=== PATIENT | male | born 1945 | race Caucasian/White ===

== ENCOUNTER → 2016-09-24 | Outpatient (CLI) | payer MEDICARE, OTHER ==
[~2016-09-24] MED LIST: BUDE10.2; CPR500T PO; HYDR1TAB8 OP; HYOS0.1217 PO; OXYC1TAB87 PO; PHEN200T27 PO
--- OUTSIDE RECORDS SUMMARY | 2016-09-24 10:08 | XMS REPORT | Continuity of Care Document ---
Author Author [facility] Organization [facility] Address Unknown Phone Unavailable Care Team Providers Care Bank Representative Name Role Phone DORIAN SAMANO MD PCP Insurance Providers Payer Name Policy Number Subscriber Name Relationship [employer] [id number] Raymon Cueva 18 Self / Same As Patient For Life [id number] Raymon Cueva 18 Self / Same As Patient Advance Directives Directive Response Recorded Date/Time Advance Directives No 09/20/16 3:42pm Health Care Power of Director Imaging No 09/20/16 3:42pm Organ Donor No 09/20/16 3:42pm Resuscitation Status Full Code 09/20/16 3:42pm Chief Complaint and Reason for Visit Chief Complaint Neurological Problems Reason for Visit transient loss of coordination lower extremities Problems No problem information available. Medications Current Home Medications Medication Dose Units Route Directions Days/Qty Instructions Start Date Ciprofloxacin 500 Mg 1 Tab Oral Twice A Day 6 TAKE ONE BY MOUTH TWICE DAILY. USE ALL OF THIS MEDICATION DIRECTED. 01/29/11 Oxycodone/Acetaminophen 1 Tab 1 Tab Oral Every 4HRS as needed 20 MAY TAKE ONE TAB BY MOUTH EVERY 4HRS NEEDED FOR PAIN 01/29/11 Budesonide/Formoterol Fumarate 10.2 Gm 30 09/20/16 Past Home Medications Medication Directions Ordered Status Ciprofloxacin 500 Mg Tablet, 1 Tab Oral Twice A Day 01/07/11 Discontinued Hydrocodone Bitartrate/Ibuprofen 1 Each Tablet, 1 - 2 Each Ophthalmic Q 4 - 6 Hrs Prn 01/07/11 Discontinued Phenazopyridine Hcl 200 Mg Tablet, 1 Each Oral Three Times A Day And Prn 12/08 Discontinued Hyoscyamine Sulfate (Levsin) 0.125 Mg/Tab Tab.rapdis, 1 - 2 Each Oral Q4hr Prn 01/10/11 Discontinued Social History Social History Problem Response Recorded Date/Time Alcohol Use Denies Use 09/20/2016 3:42pm Recreational Drug Use No 09/20/2016 3:42pm Recent Foreign Travel No 09/20/2016 3:42pm Recent Infectious Disease Exposure No 09/20/2016 3:42pm Sexually Transmitted Disease No 09/20/2016 3:42pm Smoking Status Current Everyday Smoker 09/20/2016 3:42pm Type Used Cigarettes 09/20/2016 3:42pm Recent Hopitalizations No 09/20/2016 3:42pm Sexually Transmitted Disease No 09/20/2016 3:42pm Hx Sexually Transmitted Disorders No 01/29/2011 7:00am Query Response Start Date Stop Date Smoking Status Current Everyday Smoker Hospital Discharge Instructions No hospital discharge instructions. Plan of Care Discharge Date 09/20/16 5:54pm Disposition 01 HOME, SELF-CARE Condition at Discharge Improved Instructions/Education Provided NO INSTRUCTIONS GIVEN Prescriptions See Medication Section Referrals DORIAN SAMANO MD - Primary Care Physician Additional Instructions/Education All discharge instructions reviewed with patient and/or family. Voiced understanding. Resume usual activities. If symptoms recur, see your provider for possible further in-depth neurologic studies Functional Status Query Response Date Recorded Patient Orientation Person Place Time Situation Normal For Age September 20, 2016 3:42pm Comprehension Ability Understands Concepts September 20, 2016 3:42pm Allergies, Adverse Reactions, Alerts No known allergies. Immunizations No immunization records. Vital Signs Acute Vital Signs Vital Response Date/Time Temperature (Fahrenheit) 99.6 degrees F (97.6 - 99.5) 09/20/2016 3:42pm Temperature (Calculated Celsius) 37.32930 degrees C (36.4 - 37.5) 09/20/2016 3:42pm Temperature Source Temporal 09/20/2016 3:42pm Pulse Rate (adult) 72 bpm (60 - 90) 09/20/2016 3:42pm Respiratory Rate 24 bpm (12 - 24) 09/20/2016 3:42pm O2 Sat by Pulse Oximetry 94 % (88 - 100) 09/20/2016 3:42pm Blood Pressure 130/81 mm Hg 09/20/2016 3:42pm Blood Pressure Mean 97 mm Hg 09/20/2016 3:42pm Height (Feet) 5 feet 09/20/2016 3:42pm Height (Inches) 10 inches 09/20/2016 3:42pm Height (Calculated Centimeters) 177.855478 cm 09/20/2016 3:42pm Weight (Pounds) 170 pounds 09/20/2016 3:42pm Weight (Calculated Kilograms) 77.221751 kilograms 09/20/2016 3:42pm Capillary Refill Capillary Refill Less Than 3 Seconds 09/20/2016 3:42pm Height 5 ft 10 in Weight 170 lb Body Mass Index 24.4 kg/m^2 Results Laboratory Results Test Name Result Units Flags Reference Collection Date/Time Result Date/ Time Comments White Blood Count 9.1 10^3/uL 4.3-11.0 09/20/2016 4:26pm 09/20/2016 4: 38pm Red Blood Count 4.57 10^6/uL 4.35-5.85 09/20/2016 4:pm 09/20/2016 4: 38pm Hemoglobin 14.9 G/DL 13.3-17.7 09/20/2016 4:pm 09/20/2016 4:38pm Hematocrit 44 % 40-54 09/20/2016 4:pm 09/20/2016 4:38pm Mean Corpuscular Volume 96 FL 80-99 09/20/2016 4:pm 09/20/2016 4: 38pm Mean Corpuscular Hemoglobin 33 PG 25-34 09/20/2016 4:pm 09/20/2016 4: 38pm Mean Corpuscular Hemoglobin Concent 34 G/DL 32-36 09/20/2016 4:pm 4:38pm Red Cell Distribution Width 14.3 % 10.0-14.5 09/20/2016 4:pm 2015 4:38pm Platelet Count 216 10^3/uL 130-400 09/20/2016 4:pm 09/20/2016 4:38pm Mean Platelet Volume 10.2 FL 7.4-10.4 09/20/2016 4:26pm 09/20/2016 4: 38pm Neutrophils (%) (Auto) 56 % 42-75 09/20/2016 4:09/20/2016 4:38pm Lymphocytes (%) (Auto) 32 % 12-44 09/20/2016 4:09/20/2016 4:38pm Monocytes (%) (Auto) 9 % 0-12 09/20/2016 4:09/20/2016 4:38pm Eosinophils (%) (Auto) 3 % 0-10 09/20/2016 4:09/20/2016 4:38pm Basophils (%) (Auto) 0 % 0-10 09/20/2016 4:09/20/2016 4:38pm Neutrophils # (Auto) 5.1 X 10^3 1.8-7.8 09/20/2016 4:09/20/2016 4: 38pm Lymphocytes # (Auto) 2.9 X 10^3 1.0-4.0 09/20/2016 4:pm 09/20/2016 4: 38pm Monocytes # (Auto) 0.8 X 10^3 0.0-1.0 09/20/2016 4:pm 09/20/2016 4: 38pm Eosinophils # (Auto) 0.3 10^3/uL 0.0-0.3 09/20/2016 4:pm 09/20/2016 4 :38pm Basophils # (Auto) 0.0 10^3/uL 0.0-0.1 09/20/2016 4:pm 09/20/2016 4: 38pm Urine Color YELLOW 09/20/2016 4:46pm 09/20/2016 5:01pm Urine Clarity CLEAR 09/20/2016 4:46pm 09/20/2016 5:01pm Urine pH 5 5-9 09/20/2016 4:46pm 09/20/2016 5:01pm Urine Specific [place] 1.015 * 1.016-1.022 09/20/2016 4:46pm 2015 5:01pm Urine Protein NEGATIVE NEGATIVE 09/20/2016 4:46pm 09/20/2016 5:01pm Urine Glucose (UA) NEGATIVE NEGATIVE 09/20/2016 4:46pm 09/20/2016 5: 01pm Urine RBC (Auto) 1+ * NEGATIVE 09/20/2016 4:46pm 09/20/2016 5:01pm Urine Ketones NEGATIVE NEGATIVE 09/20/2016 4:46pm 09/20/2016 5:01pm Urine Nitrite NEGATIVE NEGATIVE 09/20/2016 4:46pm 09/20/2016 5:01pm Urine Bilirubin NEGATIVE NEGATIVE 09/20/2016 4:46pm 09/20/2016 5: 01pm Urine Urobilinogen NORMAL MG/DL NORMAL 09/20/2016 4:46pm 09/20/2016 5: 01pm Urine Leukocyte Esterase 1+ * NEGATIVE 09/20/2016 4:46pm 09/20/2016 5: 01pm Urine RBC NONE /HPF 09/20/2016 4:46pm 09/20/2016 5:01pm Urine WBC 2-5 /HPF 09/20/2016 4:46pm 09/20/2016 5:01pm Urine Bacteria TRACE /HPF 09/20/2016 4:46pm 09/20/2016 5:01pm Urine Squamous Epithelial Cells 2-5 /HPF 09/20/2016 4:46pm 2015 5:01pm Urine Crystals PRESENT /LPF * 09/20/2016 4:46pm 09/20/2016 5:01pm Urine Triple Phosphate Crystals RARE /LPF * 09/20/2016 4:46pm 2015 5:01pm Urine Casts NONE /LPF 09/20/2016 4:46pm 09/20/2016 5:01pm Urine Mucus NEGATIVE /LPF 09/20/2016 4:46pm 09/20/2016 5:01pm Urine Culture Indicated NO 09/20/2016 4:46pm 09/20/2016 5:01pm Sodium Level 139 MMOL/L 135-145 09/20/2016 4:26pm 09/20/2016 5:04pm Potassium Level 4.5 MMOL/L 3.6-5.0 09/20/2016 4:26pm 09/20/2016 5:04pm Chloride Level 106 MMOL/L 98-107 09/20/2016 4:26pm 09/20/2016 5:04pm Carbon Dioxide Level 23 MMOL/L -09/20/2016 4:pm 09/20/2016 5: 04pm Anion Gap 10 MMOL/L 5-14 09/20/2016 4:26pm 09/20/2016 5:04pm Blood Urea Nitrogen 16 MG/DL 7-18 09/20/2016 4:09/20/2016 5:04pm Creatinine 0.84 MG/DL 0.60-1.30 09/20/2016 4:pm 09/20/2016 5:04pm BUN/Creatinine Ratio 19 09/20/2016 4:09/20/2016 5:04pm Estimat Glomerular Filtration Rate > 60 09/20/2016 4:2015 5:04pm GFR INTERPRETIVE DATA UNITS FOR ESTIMATED GFR (eGFR): mL/min/1.73 M2 REFERENCE RANGE FOR ESTIMATED GFR (eGFR) eGFR NORMAL eGFR >60 MODERATELY DECREASED eGFR 30-59 SEVERLY DECREASED eGFR 15-29 KIDNEY FAILURE <15 (OR DIALYSIS) Glucose Level 105 MG/DL 70-105 09/20/2016 4:pm 09/20/2016 5:04pm Calcium Level 9.2 MG/DL 8.5-10.1 09/20/2016 4:09/20/2016 5:04pm Total Bilirubin 0.2 MG/DL 0.1-1.0 09/20/2016 4:09/20/2016 5:04pm Alkaline Phosphatase 66 U/L 40-136 09/20/2016 4:09/20/2016 5:04pm Aspartate Amino Transf (AST/SGOT) 19 U/L 5-34 09/20/2016 4:2015 5:04pm Alanine Aminotransferase (ALT/SGPT) 14 U/L 0-55 09/20/2016 4:09/20 5:04pm Total Protein 7.1 G/DL 6.4-8.2 09/20/2016 4:09/20/2016 5:04pm Albumin 3.9 G/DL 3.2-4.5 09/20/2016 4:09/20/2016 5:04pm Procedures No known history of procedures. Encounters Encounter Location Arrival/Admit Date Discharge/Depart Date Attending Provider Departed Emergency Room [facility] 09/20/16 3:34pm 09/20 5:54pm DOROTEO URIBE MD Recent Diagnosis
--- NOTE | 2016-09-24 13:08 | Diagnostic Imaging Report ---
INDICATION: Chronic low back pain, leg numbness. TECHNIQUE: AP, Lateral and Spot imaging of the lumbar spine CORRELATION STUDY: None FINDINGS: Grade 2 spondylolisthesis L5 on S1. Marked disc space narrowing at this level. Probable pars articularis defect at L5 level. Remainder of the alignment anatomic. Overall lumbar vertebral body heights are maintained. Mild diffuse disc space narrowing at remaining disc levels. IMPRESSION: Grade 2 spondylolisthesis of L5 on S1 likely owing to pars articularis defect. Resultant marked disc space narrowing. Dictated by: Dictated on workstation # [id number]
== END ==
LOC: RAD 10:03
PROVIDERS: ATTEND Nurse Practitioner Family
DX: M54.5 Low back pain (principal); R20.0 Anesthesia of skin
CPT/HCPCS: 72100

== ENCOUNTER → 2016-11-28 | Outpatient (CLI) | payer MEDICARE, OTHER ==
--- OUTSIDE RECORDS SUMMARY | 2016-11-28 09:54 | XMS REPORT | Continuity of Care Document ---
Author Author [facility] Organization [facility] Address Unknown Phone Unavailable Care Team Providers Care Cinder Dump Crane Operator Name Role Phone DORIAN SAMANO MD PCP Insurance Providers Payer Name Policy Number Subscriber Name Relationship [employer] [id number] Raymon Cueva 18 Self / Same As Patient For Life [id number] Raymon Cueva 18 Self / Same As Patient Advance Directives Directive Response Recorded Date/Time Advance Directives No 09/20/16 3:42pm Health Care Power of Information Services Consultant No 09/20/16 3:42pm Organ Donor No 09/20/16 [...] - 99.5) 09/20/2016 3:42pm Temperature (Calculated Celsius) 37.66380 degrees C (36.4 - 37.5) 09/20/2016 3:42pm [...] 10 inches 09/20/2016 3:42pm Height (Calculated Centimeters) 177.404101 cm 09/20/2016 3:42pm Weight (Pounds) 170 pounds 09/20/2016 3:42pm Weight (Calculated Kilograms) 77.826239 kilograms 09/20/2016 3:42pm Capillary Refill Capillary Refill [...] 5-9 09/20/2016 4:46pm 09/20/2016 5:01pm Urine Specific [place] 1.015 * 1.016-1.022 09/20/2016 4:46pm 2015 5:01pm [...] Date Attending Provider Departed Emergency Room [facility] 09/20/16 3:34pm 09/20 5:54pm DOROTEO URIBE MD Recent Diagnosis
--- NOTE | 2016-11-28 13:05 | Diagnostic Imaging Report ---
PROCEDURE: CT chest without contrast. TECHNIQUE: Multiple contiguous axial images were obtained through the chest without the use of intravenous contrast. INDICATION: Cough, dyspnea and COPD. Comparison is made to the examination of 11/21/2015. FINDINGS: There is mild diffuse centrilobular emphysema similar to the previous study. Focal parenchymal density in the medial aspect of the right middle lobe is stable and there is persistent linear density in the lingula. There is no evidence of new pulmonary mass or focal infiltrate. There is no significant pleural or pericardial fluid. There is probable calcified granuloma in the medial right upper lobe adjacent to the mediastinum. Dense calcification is noted within the pulmonary [place] and the mediastinum and there is coronary artery calcification. Overall, no significant change is seen. IMPRESSION: Calcified granulomatous residua without evidence of new abnormality in the chest. Focal right middle lobe and lingular densities are likely due to scarring. Dictated by: Dictated on workstation # [id number]
== END ==
LOC: RAD 09:51
PROVIDERS: ATTEND Nurse Practitioner Family
DX: R06.00 Dyspnea, unspecified (principal); J44.9 Chronic obstructive pulmonary disease, unspecified; R05 Cough; Z72.0 Tobacco use
CPT/HCPCS: 71250

== ENCOUNTER → 2017-01-21 | Outpatient (CLI) | payer MEDICARE, OTHER ==
[~2017-01-21] MED LIST changes: +REGADENOSON 0.4 MG/5 ML SYR (LEXISCAN) IV ONE
[2017-01-21] MEDS: CATHETER FLUSH 10 ML SYR IV PRN ×2 (11:53→13:04)
[2017-01-21 12:53] VITALS: BP 140/86
--- NOTE | 2017-01-22 09:56 | STRESS TEST ---
DATE OF SERVICE: 01/21/2017 PROCEDURE: Exercise Myoview stress test report. REFERRING PHYSICIAN: Brooklynn Luna MD. Baseline heart rate is 56. Baseline blood pressure 140/86. Baseline EKG is sinus rhythm with right bundle-branch block. SUMMARY: The patient was injected with 10.81 mCi of technetium 99 Myoview. The patient was initially scheduled for an exercised stress test, was able to exercise only for 3 minutes on Pravin protocol. Test was terminated and converted to Lexiscan Myoview. The patient received 0.4 mg of Lexiscan, followed by 31.7 mCi of technetium-99 Myoview. Throughout the test, there were no EKG changes. The resting and stress images were reviewed and compared in the short axis, horizontal long axis and vertical long axis views. Review of the images showed diaphragmatic attenuation with good radiotracer uptake. No ischemia or infarction was seen. SSS is 0. TID value 0.96. On the gated images, the left ventricle appeared to be in normal size with normal contractility, calculated ejection fraction 46%. CONCLUSIONS: 1. The patient tolerated Lexiscan well. 2. Diaphragmatic attenuation with typical male pattern. No significant ischemia or infarction on SPECT images. 3. Normal left ventricular size with normal contractility, inferior wall was not well visualized due to diaphragmatic attenuation and calculated ejection fraction of 46%. Job ID: [id number] DocumentID: [id number] Dictated Date: 01/21/2017 16:45:35 Highway Engineering Technician Date: 01/22/2017 08:43:02 Dictated By: SANTIAGO LÓPEZ MD
--- NOTE | 2017-01-22 10:07 | ECHOCARDIOGRAPHY REPORT ---
DATE OF SERVICE: 01/21/2017 PROCEDURE: Two-dimensional echocardiogram. REFERRING PHYSICIAN: Dr. Luna. INDICATIONS: Coronary artery disease, hypertension. MEASUREMENTS: LVID end diastolic 5.3. IVS thickness 1.0. LVPW thickness 1.0. Left atrial diameter 3.0. Ejection fraction 60%. FINDINGS: 1. Technical quality is good. 2. The left ventricle is normal in size with normal contractility. Systolic function appeared to be normal. Estimated ejection fraction 60%. 3. The left atrium is normal in size. No clot or thrombus were seen within the left atrium. 4. The right atrium and right ventricle are normal in size. No clot or thrombus were seen within the right side. 5. The mitral valve is normal in morphology with mild mitral regurgitation noted by color Doppler flow. No mitral valve prolapse. No mitral valve stenosis. 6. The aortic valve is trileaflet, calcified valve with normal significant aortic stenosis or regurgitation was seen. 7. The tricuspid valve is normal in morphology with mild tricuspid regurgitation noted by color Doppler flow. Doppler across tricuspid valve estimated pulmonary artery pressure of 15 plus right atrial pressure. 8. The pulmonic valve is functioning normally. 9. No pericardial effusion. CONCLUSION: 1. Normal left ventricular size and systolic function. Estimated ejection fraction of 60%. 2. Diastolic dysfunction is suggested by Doppler. 3. Aortic valve sclerosis. No aortic stenosis. 4. Mild mitral and tricuspid regurgitation. 3. Estimated pulmonary artery pressure of 25 mmHg. Job ID: [id number] DocumentID: [id number] Dictated Date: 01/21/2017 17:12:58 Medical Technologist Microbiology Date: 01/22/2017 09:41:30 Dictated By: SANTIAGO LÓPEZ MD
== END ==
LOC: CARD 10:34
PROVIDERS: ATTEND Internal Medicine Cardiovascular Disease
DX: I25.10 Atherosclerotic heart disease of native coronary artery without angina pectoris (principal); R06.00 Dyspnea, unspecified; J44.9 Chronic obstructive pulmonary disease, unspecified; Z72.0 Tobacco use
CPT/HCPCS: 78452; 93017; 93306

== ENCOUNTER 2019-01-20 18:48 | Emergency (ER) | payer MEDICARE, OTHER ==
[~2019-01-20] VITALS: Ht 177.8 cm; Wt 77.1 kg
[~2019-01-20 18:48] MED LIST changes: -REGADENOSON 0.4 MG/5 ML SYR (LEXISCAN) IV ONE
[2019-01-20 20:40] LABS: BILIRUBIN,URINE NEGATIVE (NEGATIVE); CLARITY,URINE CLEAR; COLOR,URINE YELLOW; GLUCOSE, URINE (UA) NEGATIVE (NEGATIVE); KETONES,URINE NEGATIVE (NEGATIVE); LEUKOCYTE ESTERASE ,URINE NEGATIVE (NEGATIVE); NITRITE,URINE NEGATIVE (NEGATIVE); PH,URINE 6 (5-9); PROTEIN,URINE NEGATIVE (NEGATIVE); UROBILINOGEN,URINE NORMAL (NORMAL)
[2019-01-20 20:42] LABS: BASOPHILS % (AUTO) 0 % (0-10); EOSINOPHILS # (AUTO) 0.1 10^3/uL (0.0-0.3); EOSINOPHILS % (AUTO) 1 % (0-10); HEMATOCRIT 43 % (40-54); HEMOGLOBIN 14.6 G/DL (13.3-17.7); LYMPHOCYTES # (AUTO) 1.4 X 10^3 (1.0-4.0); LYMPHOCYTES % (AUTO) 13 % (12-44); MEAN CORPUSCULAR HEMOGLOBIN 32 PG (25-34); MEAN CORPUSCULAR HGB CONC 34 G/DL (32-36); MEAN CORPUSCULAR VOLUME 96 FL (80-99); MONOCYTES # (AUTO) 0.7 X 10^3 (0.0-1.0); MONOCYTES % (AUTO) 6 % (0-12); NEUTROPHILS # (AUTO) 8.5 X 10^3 (1.8-7.8); NEUTROPHILS % (AUTO) 80 % (42-75); PLATELET COUNT 219 10^3/uL (130-400); RED CELL DISTRIBUTION WIDTH 14.5 % (10.0-14.5); WHITE BLOOD COUNT 10.6 10^3/uL (4.3-11.0)
[2019-01-20 20:46] LABS: RBC,URINE 25-50 /HPF
[2019-01-20 21:00] LABS: ALANINE AMINOTRANSFERASE 15 U/L (0-55); ALKALINE PHOSPHATASE 63 U/L (40-136); AMYLASE 45 U/L (25-125); BILIRUBIN,TOTAL 0.3 MG/DL (0.1-1.0); BUN/CREATININE RATIO 19; CALCIUM 9.9 MG/DL (8.5-10.1); CARBON DIOXIDE 24 MMOL/L (21-32); CHLORIDE 108 MMOL/L (98-107); CREATININE SERUM 1.01 MG/DL (0.60-1.30); GFR ESTIMATED > 60; GLUCOSE 123 MG/DL (70-105); LIPASE 19 U/L (8-78); POTASSIUM 4.3 MMOL/L (3.6-5.0); SODIUM 144 MMOL/L (135-145); TOTAL PROTEIN 7.3 GM/DL (6.4-8.2)
--- NOTE | 2019-01-20 21:25 | Diagnostic Imaging Report ---
PROCEDURE: CT abdomen and pelvis without contrast. TECHNIQUE: Multiple contiguous axial images were obtained through the abdomen and pelvis without the use of intravenous contrast. Auto Exposure Controls were utilized during the CT exam to meet ALARA standards for radiation dose reduction. INDICATION: Right lower quadrant pain. There is some scarring or subsegmental atelectasis in the lingula. Otherwise, the lung bases are clear. Several rounded low densities are identified throughout the liver consistent with cysts. These are similar to prior CT from 01/07/2011. Small stones within the gallbladder are noted. No biliary duct dilatation is seen. The pancreas and spleen are unremarkable. No adrenal mass on the right is seen. There is some mild mild low-density enlargement of the left adrenal gland perhaps on the basis of adenoma. Left kidney is unremarkable. Right kidney does demonstrate some perinephric inflammatory stranding. There is also some mild to moderate right hydroureteronephrosis. The dilated right ureter is traced into the pelvis where there is a 4 mm calculus in the distal right ureter just proximal to the UVJ. No bladder calculi are seen. Infrarenal abdominal aorta is aneurysmal measuring 3.8 cm AP diameter. Some mild aneurysmal dilatation right common iliac artery as well. No rectoperineal hemorrhage is seen. The bowel loops are normal caliber without evidence of obstruction. There is no ascites. Prostate is enlarged. Evaluation of bony structures demonstrates spondylolisthesis of L5 on S1. There are pars defects bilaterally at this level. IMPRESSION: 1. A 4 mm distal right ureteric calculus producing moderate hydroureteronephrosis. 2. Cholelithiasis. 3. Hepatic cyst. 4. Development of infrarenal abdominal aortic aneurysm since prior CT from 2010. No leakage or rupture is seen. 5. Prostatomegaly. Dictated by: Dictated on workstation # [id number]
--- NOTE | 2019-01-20 22:25 | ED Abdominal Pain ---
General Chief Complaint: Abdominal/GI Problems Stated Complaint: LOWER ABD PAIN Nursing Triage Note: Patient advises shortly after dinner he began experiencing right lower quadrant abdominal pain that has become progressively worse. Sepsis Screen: No Definite Risk Source of Information: Patient Exam Limitations: No Limitations History of Present Illness Date Seen by Provider: January 20, 2019 Time Seen by Provider: 20:19 Initial Comments 73-year-old male who presents to the emergency room with complaints of right lower quadrant abdominal pain that started this evening after dinner and has became progressively worse throughout the evening. He reports history of kidney stones. Reports his pain has improved slightly and denies need for pain medication at this time. Timing/Duration: 1-3 Hours Severity/Quality: Sharp Location: RLQ Radiation: No Radiation Associated Symptoms: Denies Symptoms Allergies and Home Medications Allergies Coded Allergies: No Known Drug Allergies (Unverified , 09/20/16) Home Medications Ciprofloxacin 500 Mg Tablet, 1 TAB PO BID, (Reported) TAKE ONE BY MOUTH TWICE DAILY. USE ALL OF THIS MEDICATION DIRECTED. Hydrocodone Bit/Acetaminophen 1 Tab Tab, 1 EACH PO Q4-6HR PRN for PAIN-MODERATE Prescribed by: PIPO SCOTT on 01/20/192225 Oxycodone Hcl/Acetaminophen 1 Tab Tablet, 1 TAB PO Q4H PRN, (Reported) MAY TAKE ONE TAB BY MOUTH EVERY 4HRS NEEDED FOR PAIN Sulfamethoxazole/Trimethoprim 1 Each Tablet, 1 EACH PO BID Prescribed by: PIPO SCOTT on 01/20/192225 Patient Home Medication List Home Medication List Reviewed: Yes Review of Systems Review of Systems Constitutional: see HPI; No chills, No fever Gastrointestinal: See HPI, Abdominal Pain Genitourinary: No Symptoms Reported All Other Systems Reviewed Negative Unless Noted: Yes Past Htxdlca-Zovekh-Azvukq Hx Past Med/Social Hx: Reviewed Nursing Past Med/Soc Hx Patient Social History Alcohol Use: Denies Use Recreational Drug Use: No Type Used: Cigarettes Recent Foreign Travel: No Contact w/Someone Who Travel: No Recent Infectious Disease Expo: No Recent Hopitalizations: No Immunizations Up To Date Tetanus Booster (TDap): Unknown Date of Influenza Vaccine: Jun 21, 2016 Seasonal Allergies Seasonal Allergies: No Past Medical History Surgeries: Yes (shoulder, knee) Orthopedic Respiratory: Yes COPD Cardiac: No Hypertension Neurological: No Reproductive Disorders: No Sexually Transmitted Disease: No Genitourinary: Yes Kidney Stones Gastrointestinal: No Musculoskeletal: No Endocrine: No HEENT: No Cancer: No Psychosocial: No Integumentary: No Blood Disorders: No Adverse Reaction/Blood Tranf: No Family Medical History Reviewed Nursing Family Hx Physical Exam Vital Signs Vital Signs - First Documented 01/20/19 19:52 Pulse 66 Resp 14 B/P (MAP) 145/78 (100) Pulse Ox 98 O2 Delivery Room Air Capillary Refill : Less Than 3 Seconds Height/Weight/BMI Height: 5'10.00" Weight: 170lbs. oz. [id number]; BMI Method:Stated General Appearance: WD/WN, no apparent distress Respiratory: chest non-tender, lungs clear, normal breath sounds, no respiratory distress, no accessory muscle use Cardiovascular: normal peripheral pulses, regular rate, rhythm, no edema, no gallop, no JVD, no murmur Gastrointestinal: normal bowel sounds, non tender, soft, no organomegaly, no pulsatile mass Extremities: normal capillary refill Back: normal inspection, no CVA tenderness, no vertebral tenderness Neurologic/Psychiatric: alert, normal mood/affect, oriented x 3 Skin: normal color, warm/dry Progress/Results/Core Measures Results/Orders Lab Results Laboratory Tests Test 01/20/19 20:31 01/20/19 20:36 Range/Units Urine Color YELLOW Urine Clarity CLEAR Urine pH 6 5-9 Urine Specific [place] 1.015 L 1.016-1.022 Urine Protein NEGATIVE NEGATIVE Urine Glucose (UA) NEGATIVE NEGATIVE Urine Ketones NEGATIVE NEGATIVE Urine Nitrite NEGATIVE NEGATIVE Urine Bilirubin NEGATIVE NEGATIVE Urine Urobilinogen NORMAL NORMAL MG/DL Urine Leukocyte Esterase NEGATIVE NEGATIVE Urine RBC (Auto) 5+ H NEGATIVE Urine RBC 25-50 H /HPF Urine WBC NONE /HPF Urine Renal Epithelial Cells 2-5 /HPF Urine Crystals NONE /LPF Urine Bacteria NONE /HPF Urine Casts NONE /LPF Urine Mucus NEGATIVE /LPF Urine Culture Indicated NO White Blood Count 10.6 4.3-11.0 10^3/uL Red Blood Count 4.50 4.35-5.85 10^6/uL Hemoglobin 14.6 13.3-17.7 G/DL Hematocrit 43 40-54 % Mean Corpuscular Volume 96 80-99 FL Mean Corpuscular Hemoglobin 32 25-34 PG Mean Corpuscular Hemoglobin Concent 34 32-36 G/DL Red Cell Distribution Width 14.5 10.0-14.5 % Platelet Count 219 130-400 10^3/uL Mean Platelet Volume 10.0 7.4-10.4 FL Neutrophils (%) (Auto) 80 H 42-75 % Lymphocytes (%) (Auto) 13 12-44 % Monocytes (%) (Auto) 6 0-12 % Eosinophils (%) (Auto) 1 0-10 % Basophils (%) (Auto) 0 0-10 % Neutrophils # (Auto) 8.5 H 1.8-7.8 X 10^3 Lymphocytes # (Auto) 1.4 1.0-4.0 X 10^3 Monocytes # (Auto) 0.7 0.0-1.0 X 10^3 Eosinophils # (Auto) 0.1 0.0-0.3 10^3/uL Basophils # (Auto) 0.0 0.0-0.1 10^3/uL Sodium Level 144 135-145 MMOL/L Potassium Level 4.3 3.6-5.0 MMOL/L Chloride Level 108 H 98-107 MMOL/L Carbon Dioxide Level 24 21-32 MMOL/L Anion Gap 12 5-14 MMOL/L Blood Urea Nitrogen 19 H 7-18 MG/DL Creatinine 1.01 0.60-1.30 MG/DL Estimat Glomerular Filtration Rate > 60 BUN/Creatinine Ratio 19 Glucose Level 123 H 70-105 MG/DL Calcium Level 9.9 8.5-10.1 MG/DL Corrected Calcium 9.9 8.5-10.1 MG/DL Total Bilirubin 0.3 0.1-1.0 MG/DL Aspartate Amino Transf (AST/SGOT) 16 5-34 U/L Alanine Aminotransferase (ALT/SGPT) 15 0-55 U/L Alkaline Phosphatase 63 40-136 U/L Total Protein 7.3 6.4-8.2 GM/DL Albumin 4.0 3.2-4.5 GM/DL Amylase Level 45 25-125 U/L Lipase 19 8-78 U/L My Orders Orders - PIPO SCOTT Comprehensive Metabolic Panel (01/20/19 20:13) Lipase (01/20/19 20:13) Amylase (01/20/19 20:13) Ua Culture If Indicated (01/20/19 20:13) Ed Iv/Invasive Line Start (01/20/19 20:13) Cbc With Automated Diff (01/20/19 20:13) Ct Abdomen/Pelvis Wo (01/20/19 21:00) Rx-Hydrocodone/Apap 5-325 Mg (Rx-Vicodin (01/20/19 22:26) Rx-Hydrocodone/Apap 5-325 Mg (Rx-Vicodin (01/20/19 22:45) Medications Given in ED Current Medications Medications Dose Ordered Sig/Esther Route Start Time Stop Time Status Last Admin Dose Admin Acetaminophen/ Hydrocodone Bitart 1 ea Q4H PRN PO 01/20/19 22:45 01/20/19 22:32 1 EA Vital Signs/I&O 01/20/19 19:52 Pulse 66 Resp 14 B/P (MAP) 145/78 (100) Pulse Ox 98 O2 Delivery Room Air Blood Pressure Mean: 100 Progress Progress Note : Time: 22:20 Progress Note I have seen and evaluated the patient. I've informed him of his laboratory and imaging studies. He agrees to follow-up with Dr. Luna and Dr. Tapia to monitor his kidney stone and his newly discovered abdominal aneurysm. Patient agrees with plan of care, plans for discharge, return precautions were given. Departure Impression Primary Impression: Kidney stone Additional Impression: Abdominal aortic aneurysm Disposition: 01 HOME, SELF-CARE Condition: Stable/Unchanged Departure-Patient Inst. Decision time for Depature: 22:20 Referrals: DORIAN LUNA MD (PCP/Family) Primary Care Physician Patient Instructions: Kidney Stones in Adults, Abdominal Aortic Aneurysm Add. Discharge Instructions: Take medications as directed. Follow-up with Dr. Tapia within 1 week to further evaluate your kidney stone. Strain all urine. Return back to the emergency room for worsening symptoms or concerns as needed. He also have a new development of a small aortic aneurysm. You need to follow-up with Dr. Luna for further monitoring of this. Call tomorrow morning to schedule appointment times for both physicians. All discharge instructions reviewed with patient and/or family. Voiced understanding. Scripts Sulfamethoxazole/Trimethoprim (Bactrim Ds Tablet) 1 Each Tablet 1 EACH PO BID for 7 Days, #14 TAB Prov: PIPO SCOTT 01/20/19 Hydrocodone Bit/Acetaminophen (Hydrocodone/Acetaminophen 5/325mg Tablet) 1 Tab Tab 1 EACH PO Q4-6HR PRN for PAIN-MODERATE MDD 10 for 3 Days, #14 TAB Prov: [email or web address] 01/20/19 Copy Copies To 1: NOMAN TAPIA MD Copies To 2: DORIAN LUNA MD, TRAVIS January 20, 2019 22:25
[2019-01-20] MEDS ORDERED: SULF1TAB35 PO (22:26)
[2019-01-20] MEDS ORDERED: ACHD5005 PO (22:26)
[2019-01-20] MEDS ORDERED: RX-HYDROCODONE/APAP 5/325 MG #4 TAB PK PO ONE (22:26)
[2019-01-20 22:35] VITALS: BP 158/96
[2019-01-20] MEDS ORDERED: RX-HYDROCODONE/APAP 5/325 MG #4 TAB PK PO PRN (22:45)
== END 2019-01-20 22:35 | disposition home or self-care (01) ==
LOC: EDUNIT# 18:48 → ER 18:49
DX: N13.2 Hydronephrosis with renal and ureteral calculous obstruction (principal); I71.4 Abdominal aortic aneurysm, without rupture; J44.9 Chronic obstructive pulmonary disease, unspecified; I10 Essential (primary) hypertension
CPT/HCPCS: 36415; 74176; 80053; 81000; 82150; 83690; 85025

== ENCOUNTER → 2019-09-23 | Outpatient (CLI) | payer MEDICARE, OTHER ==
[~2019-09-23] MED LIST changes: +ACHD5005 PO; +SULF1TAB35 PO
--- NOTE | 2019-09-23 08:36 | Diagnostic Imaging Report ---
PROCEDURE: CT abdomen and pelvis without contrast. TECHNIQUE: Multiple contiguous axial images were obtained through the abdomen and pelvis without the use of intravenous contrast. Auto Exposure Controls were utilized during the CT exam to meet ALARA standards for radiation dose reduction. INDICATION: Abdominal aortic aneurysm, follow-up. COMPARISON: Correlation is made with prior CT from 01/20/2019. FINDINGS: Lung bases are clear of acute infiltrates. Circumscribed low-density lesions within the liver appear stable most consistent with cysts. Small stone within the gallbladder. No biliary ductal dilatation is seen. The pancreas and spleen are unremarkable. No adrenal mass on the right is identified. There is some low-density enlargement of the left adrenal gland, stable and likely representing an adenoma. Tiny nonobstructing calculus in lower pole of right kidney is seen. No left-sided renal calculi are detected. No ureteral calculi or hydronephrosis is identified on today's exam. Infrarenal abdominal aortic aneurysm is stable approximately 4 cm AP diameter. Bowel loops are normal caliber. There is no obstruction. No free fluid is detected. Bladder is unremarkable. Prostate is mildly enlarged but stable. The bony structures are nonacute. Pars defect L5-S1 with spondylolisthesis L5 on S1 is noted. IMPRESSION: 1. Stable infrarenal abdominal aortic aneurysm with AP diameter approximately 4.0 cm. No leakage or rupture is detected. 2. Tiny nonobstructing right renal calculus. No ureteral calculi or hydronephrosis is detected. 3. Cholelithiasis. 4. Hepatic cysts. Dictated by: Dictated on workstation # [id number]
== END ==
LOC: RAD 07:46
PROVIDERS: ATTEND Thoracic Surgery (Cardiothoracic Vascular Surgery)
DX: I71.4 Abdominal aortic aneurysm, without rupture (principal); N20.0 Calculus of kidney; K80.20 Calculus of gallbladder without cholecystitis without obstruction; K76.89 Other specified diseases of liver
CPT/HCPCS: 74176

== ENCOUNTER → 2020-04-02 | Outpatient (CLI) | payer MEDICARE, OTHER ==
[~2020-04-02] MED LIST changes: +CATHETER FLUSH 10 ML SYR IV PRN; +HOLD METFORMIN - RECEIVED CONTRAST 20 ML VIAL IV SCH; +IOHEXOL 350 MG/ML 100 ML (OMNIPAQUE 350) VIAL IV ONE; +NS 100 ML (IVPB) BAG IV ONE
[2020-04-02 12:36] LABS: BUN/CREATININE RATIO 17; CREATININE SERUM 0.89 MG/DL (0.60-1.30); GFR ESTIMATED > 60
--- NOTE | 2020-04-02 14:19 | Diagnostic Imaging Report ---
PROCEDURE: CT Angio Abdomen/Pelvis with. TECHNIQUE: Multiple contiguous axial images were obtained through the abdomen and pelvis after the uneventful bolus administration of intravenous contrast. Sagittal and coronal MIP reconstructions with then performed. All CT scans use one or more of the following dose optimizing techniques: automated exposure control, MA and/or KvP adjustment based on a patient size and exam type, or iterative reconstruction. INDICATION: Abdominal aortic aneurysm, follow-up. Correlation is made with noncontrast CT from 09/23/2019. Lung bases are clear. Circumscribed low-attenuation lesions left lobe of the liver are again noted suggestive of cysts. Small cyst inferior right lobe is also noted. Gallbladder contains small stones. There is no biliary ductal dilatation. Pancreas and spleen are unremarkable. No adrenal mass is detected. The kidneys are unremarkable. The previously noted infrarenal abdominal aortic aneurysm is stable at 4.0 cm. This does contain a moderate amount of mural thrombus. There is some mild dilatation of the common iliac arteries bilaterally as well. No retroperitoneal hemorrhage or evidence of rupture or leakage is seen. Bowel loops remain normal caliber. There is no obstruction. Bladder and prostate are unremarkable. IMPRESSION: 1. Overall stable CT abdomen and pelvis since exam from 09/23/2019. Infrarenal abdominal aortic aneurysm is stable at 4.0 cm. Dictated by: Dictated on workstation # [id number]
== END ==
LOC: RAD 12:03
PROVIDERS: ATTEND Nurse Practitioner Family
DX: I71.4 Abdominal aortic aneurysm, without rupture (principal)
CPT/HCPCS: 36415; 74174; 82565; 84520

== ENCOUNTER → 2020-09-24 | Outpatient (CLI) | payer MEDICARE, OTHER ==
[2020-09-24 09:57] LABS: BUN/CREATININE RATIO 18; GFR ESTIMATED > 60
--- NOTE | 2020-09-24 11:25 | Diagnostic Imaging Report ---
PROCEDURE: CT angiography of the abdomen with and without contrast. TECHNIQUE: Multiple contiguous axial images were obtained through the abdomen and pelvis after administration of intravenous contrast. 3D MIP reconstructions were made. Auto Exposure Controls were utilized during the CT exam to meet ALARA standards for radiation dose reduction. INDICATION: Abdominal aortic aneurysm. Comparison is made prior CT from 04/02/2020. FINDINGS: The lung bases are clear. Low attenuation lesions within the liver are again noted and appears stable and most suggestive of cysts. Gallbladder appears contain small stones. Pancreas and spleen are unremarkable. The right adrenal gland is unremarkable. There is low-density enlargement of the left adrenal gland, likely representing an adenoma. This is stable. There appear to be nonobstructing calculi in the lower pole of the right kidney, largest 3 mm in size. There is no hydronephrosis. Infrarenal abdominal aortic aneurysm is stable at 4.0 cm. There is moderate amount of mural thrombus. Small and large bowel loops are normal caliber. There is no free fluid or fluid collection. IMPRESSION: 1. Stable infrarenal abdominal aortic aneurysm when compared with exam from 04/02/2020. No leakage or rupture is identified. 2. Nonobstructing right-sided nephrolithiasis. 3. Cholelithiasis. 4. Hepatic cysts. Dictated by: Dictated on workstation # [id number]
== END ==
LOC: RAD 10:15
PROVIDERS: ATTEND Nurse Practitioner
DX: I71.4 Abdominal aortic aneurysm, without rupture (principal); N20.0 Calculus of kidney; K80.20 Calculus of gallbladder without cholecystitis without obstruction; K76.89 Other specified diseases of liver
CPT/HCPCS: 36415; 74175; 82565; 84520

== ENCOUNTER → 2021-02-15 | Outpatient (CLI) | payer MEDICARE, OTHER ==
[~2021-02-15] MED LIST changes: -CATHETER FLUSH 10 ML SYR IV PRN; -HOLD METFORMIN - RECEIVED CONTRAST 20 ML VIAL IV SCH; -IOHEXOL 350 MG/ML 100 ML (OMNIPAQUE 350) VIAL IV ONE; -NS 100 ML (IVPB) BAG IV ONE
== END ==
LOC: CARD 10:43
PROVIDERS: ATTEND Internal Medicine Cardiovascular Disease
DX: I11.9 Hypertensive heart disease without heart failure (principal); I35.1 Nonrheumatic aortic (valve) insufficiency; I25.10 Atherosclerotic heart disease of native coronary artery without angina pectoris
CPT/HCPCS: 93306

== ENCOUNTER → 2021-07-31 | Outpatient (CLI) | payer MEDICARE, OTHER ==
[~2021-07-31] VITALS: Ht 177 cm; Wt 75.0 kg
[~2021-07-31] MED LIST changes: +CATHETER FLUSH 10 ML SYR IV PRN; +REGADENOSON 0.4 MG/5 ML SYR (LEXISCAN) IV ONE; -SULF1TAB35 PO; +SULF1TAB38 PO
[2021-07-31 09:22] VITALS: BP 134/82
--- NOTE | 2021-07-31 13:04 | Cardiology Stress Test Report ---
Stress Test Report Date of Procedure/Referring: Date of Procedure: Jul 31, 2021 PCP Santiago Campos MD Admitting Physician Brooklynn Luna MD Indications: CP Baseline Heart Rate: 56 Baseline Blood Pressure: Blood Pressure Systolic: 134 Blood Pressure Diastolic: 82 Baseline Vitals Vital Signs Date Time Temp Pulse Resp B/P (MAP) Pulse Ox O2 Delivery O2 Flow Rate FiO2 07/31/21 09:22 67 17 134/82 (99) 98 Room Air Baseline EKG: Baseline EKG: NSR, RBBB Summary After explaining the procedure to the patient, he signed a consent and then brought to the stress nuclear laboratory. Patient received 0.4 mg Lexiscan for stress test, ECG, heart rate and blood pressure were monitored continuously. Resting and stress dose of radio tracer were injected, imaging was acquired and reviewed in short axis, horizontal long axis and vertical long axis views. TID: 1.07 SSS: 2 SDS: 1 EF: 47 1. Patient tolerated Lexiscan well 2. Baseline right bundle branch block persisted during test 3. Normal left ventricular size, EF 47% SANTIAGO CAMPOS MD Jul 31, 2021 13:04
== END ==
LOC: CARD 07:45
PROVIDERS: ATTEND Internal Medicine Cardiovascular Disease
DX: I25.10 Atherosclerotic heart disease of native coronary artery without angina pectoris (principal); I10 Essential (primary) hypertension
CPT/HCPCS: 78452; 93017; A9502

== ENCOUNTER → 2021-08-28 | Outpatient (CLI) | payer MEDICARE, OTHER ==
[~2021-08-28] MED LIST changes: +HOLD METFORMIN - RECEIVED CONTRAST 20 ML VIAL IV SCH; +IOHEXOL 350 MG/ML 100 ML (OMNIPAQUE 350) VIAL IV ONE; +NS 100 ML (IVPB) BAG IV ONE; -REGADENOSON 0.4 MG/5 ML SYR (LEXISCAN) IV ONE
[2021-08-28 07:55] LABS: CREATININE SERUM 0.88 MG/DL (0.60-1.30)
--- NOTE | 2021-08-28 08:48 | Diagnostic Imaging Report ---
EXAMINATION: CT angiography of the abdomen. TECHNIQUE: After intravenous administration of contrast, thin section axial CT angiography of the abdomen and were obtained. 3D MIP reformats were provided. All CT scans use one or more of the following dose optimizing techniques: automated exposure control, MA and/or KvP adjustment based on a patient size and exam type, or iterative reconstruction. HISTORY: Aortic aneurysm COMPARISON: 09/24/2020 FINDINGS: There is infrarenal abdominal aortic aneurysm measuring 4.3 x 4.3 cm previously 4.3 x 4.0 cm. It extends to involve both common iliac arteries proximally. The right common iliac artery measures 2.7 cm and left common iliac artery measures 2.1 cm. There is a large amount of mural thrombus near the aortic bifurcation. Limited views of the lower thorax are unremarkable. There are few small cysts in the liver. No suspicious liver lesions. There is no biliary ductal dilation. There are few stones in the gallbladder. No evidence of cholecystitis. Pancreas is normal. Spleen is normal. Adrenal glands are normal. There are two small stones in the right kidney. No suspicious renal lesions. There is no hydronephrosis. Visualized bowel is normal in caliber without obstruction or inflammation. No free fluid or air. No abdominal lymphadenopathy. There are no suspicious osseus lesions. IMPRESSION: 1. Mild increase in size of infrarenal abdominal aortic aneurysm measuring 4.3 x 4.3 cm previously 4.3 x 4.0 cm Dictated by: Dictated on workstation # [id number]
== END ==
LOC: RAD 08:15
PROVIDERS: ATTEND Nurse Practitioner
DX: I71.4 Abdominal aortic aneurysm, without rupture (principal)
CPT/HCPCS: 36415; 74175; 82565; 84520

== ENCOUNTER → 2022-02-25 | Outpatient (CLI) | payer MEDICARE, OTHER ==
[2022-02-25 08:09] LABS: CREATININE SERUM 0.99 MG/DL (0.60-1.30)
--- NOTE | 2022-02-25 11:09 | Diagnostic Imaging Report ---
PROCEDURE: CT Angio Abdomen/Pelvis with. TECHNIQUE: Multiple contiguous axial images were obtained through the abdomen and pelvis after the uneventful bolus administration of intravenous contrast. Sagittal and coronal MIP reconstructions with then performed. All CT scans use one or more of the following dose optimizing techniques: automated exposure control, MA and/or KvP adjustment based on patient size and exam type or iterative reconstruction. INDICATION: Abdominopelvic aneurysm. COMPARISON: Study compared to 08/28/2021. FINDINGS: The infrarenal fusiform atherosclerotic abdominal aortic aneurysm today has maximal dimensions in the axial plane of 4.3 x 3.9 cm, previously 4.0 x 3.9 cm. Distal right common iliac aneurysm today has a diameter of 2.5 cm, previously same. Proximal partially thrombosed left common iliac aneurysm measures 2 cm in diameter, unchanged. Atherosclerotic ectasia of the internal iliac branches, unchanged. The external iliac showed diffuse calcified plaque without occlusion or hemodynamically significant stenosis. The common femorals, the proximal SFA, and profunda are patent. No dissection, mural hemorrhage, or aneurysmal rupture. The celiac, the superior mesenteric, and the inferior mesenteric arteries are all widely patent. Renal arteries are patent. No findings of acute solid or hollow visceral end-organ ischemia. Benign cyst in the left and right hepatic lobes, chronic. There are likely gallstones layering within the dependent tortuous gallbladder lumen. No findings of cholecystitis. No intra or extrahepatic bile duct dilatation. The pancreas, its duct, and the peripancreatic fat are normal. There is some fatty hypertrophy of the left adrenal gland, stable. No suspicious adrenal nodularity. The unobstructed kidneys appeared normal. There is no small or large bowel obstruction. IMPRESSION: 1. Aortoiliac aneurysmal dilatations are relatively stable from the comparison without rupture, vascular obstruction, or end-organ ischemia. 2. No acute-appearing abnormality. 3. Probable stable cholelithiasis and benign hepatic cysts. Dictated by: Dictated on workstation # [id number]
== END ==
LOC: RAD 08:45
PROVIDERS: ATTEND Nurse Practitioner
DX: I71.4 Abdominal aortic aneurysm, without rupture (principal)
CPT/HCPCS: 36415; 74174; 82565; 84520

== ENCOUNTER → 2022-08-25 | Outpatient (CLI) | payer MEDICARE, OTHER ==
[2022-08-25 09:08] LABS: CREATININE SERUM 0.91 MG/DL (0.60-1.30)
--- NOTE | 2022-08-25 11:37 | Diagnostic Imaging Report ---
PROCEDURE: CT angiography of the abdomen with and without contrast. TECHNIQUE: Multiple contiguous axial images were obtained through the abdomen and pelvis after administration of intravenous contrast. 3D MIP reconstructions were made. Auto Exposure Controls were utilized during the CT exam to meet ALARA standards for radiation dose reduction. INDICATION: Abdominal aortic aneurysm. Correlation is made to prior CT from 02/25/2022. A distal abdominal aortic aneurysm measures 4.47 cm AP by approximately 4.1 cm transverse compared with 4.3 cm AP by 3.9 cm transverse on prior exam. Aneurysmal dilatation right common iliac measures 2.7 cm compared with 2.5 cm. Distal aorta does contain a moderate amount of mural thrombus. There is no evidence of leakage or rupture. The lung bases are clear. Liver contains numerous low-attenuation lesions particularly left lobe consistent with cysts. Gallbladder contains small stones. Pancreas and spleen are unremarkable. No adrenal mass is detected. Kidneys are unremarkable. Bowel loops are normal caliber. There is no ascites. IMPRESSION: 1. Stable aortoiliac aneurysm when compared to exam from 02/25/2022. No leakage or rupture is identified. 2. Cholelithiasis. 3. Hepatic cysts. Dictated by: Dictated on workstation # [id number]
== END ==
LOC: RAD 08:34
PROVIDERS: ATTEND Nurse Practitioner
DX: I71.40 Abdominal aortic aneurysm, without rupture, unspecified (principal); K80.20 Calculus of gallbladder without cholecystitis without obstruction; K76.89 Other specified diseases of liver
CPT/HCPCS: 36415; 74175; 82565; 84520

== ENCOUNTER → 2023-01-08 | Outpatient (CLI) | payer MEDICARE, OTHER ==
[~2023-01-08] MED LIST changes: -CATHETER FLUSH 10 ML SYR IV PRN; -HOLD METFORMIN - RECEIVED CONTRAST 20 ML VIAL IV SCH; -IOHEXOL 350 MG/ML 100 ML (OMNIPAQUE 350) VIAL IV ONE; -NS 100 ML (IVPB) BAG IV ONE
== END ==
LOC: CARD 07:58
PROVIDERS: ATTEND Internal Medicine Cardiovascular Disease
DX: I10 Essential (primary) hypertension (principal)
CPT/HCPCS: 93306

== ENCOUNTER 2023-07-07 16:37 | Emergency (ER) | payer MEDICARE, OTHER ==
--- NOTE | 2023-07-07 16:54 | ED Fall/Injury ---
General Chief Complaint: Trauma-Non Activation Stated Complaint: FALL - HIT HEAD Nursing Triage Note: PT AMB TO RM 3, PT STATES TRIPPED OVER CONCRETE IN GARAGE AND FELL INTO SHELF HAS LAC ON TOP OF HEAD APPROX 3-4CM. PT DENIES LOC. Source: patient, family () Exam Limitations: no limitations History of Present Illness Date Seen by Provider: Jul 07, 2023 Time Seen by Provider: 16:44 Initial Comments 77-year-old male presents after a fall. He was trying to get a trailer off of a trailer hitch which caused him to fall down and strike his head on the horizontal shelf. He has a laceration to his posterior occipital region of the superior portion of his scalp that he thinks his tetanus shot was in the last 5 years but he is not sure and thinks it was close he did not lose consciousness. No nausea or vomiting. No changes in his vision. He is not on any blood thinning medicines outside of an 81 mg aspirin daily All other systems reviewed and negative except documented per HPI. Voice recognition software was used to help create this chart Allergies and Home Medications Allergies Coded Allergies: No Known Drug Allergies (Unverified , 09/20/16) Patient Home Medication List Home Medication List Reviewed: Yes Budesonide/Formoterol Fumarate (Symbicort 160-4.5 Mcg Inhaler) 10.2 Gm Hfa.aer.ad, (Reported) Entered as Reported by: JUAN BERNAL on 09/20/16 1549 Ciprofloxacin (Cipro) 500 Mg Tablet, 1 TAB PO BID, (Reported) Entered as Reported by: CHRISTIANO MEIER on 01/29/11 1053 Hydrocodone Bit/Acetaminophen (Lortab 5 Mg Tablet) 1 Tab Tab, 1 EACH PO Q4-6HR PRN for PAIN-MODERATE Prescribed by: PIPO SCOTT on 01/20/192225 Oxycodone Hcl/Acetaminophen (Tylox 5/325 Mg) 1 Tab Tablet, 1 TAB PO Q4H PRN, (Reported) Entered as Reported by: CHRISTIANO MEIER on 01/29/11 1053 Sulfamethoxazole/Trimethoprim (Bactrim Ds Tablet) 1 Each Tablet, 1 EACH PO BID Prescribed by: PIPO SCOTT on 01/20/192225 Review of Systems Review of Systems Constitutional: see HPI Past Oczlzmp-Wnmcee-Febkyd Hx Patient Social History Tobacco Use?: No Use of E-Cig and/or Vaping dev: No Substance use?: No Alcohol Use?: No Immunizations Up To Date Tetanus Booster (TDap): Unknown Seasonal Allergies Seasonal Allergies: No Past Medical History Surgeries: Yes (shoulder, knee) Orthopedic Respiratory: Yes COPD Cardiac: No Hypertension Neurological: No Reproductive Disorders: No Sexually Transmitted Disease: No Genitourinary: Yes Kidney Stones Gastrointestinal: No Musculoskeletal: No Endocrine: No HEENT: No Cancer: No Psychosocial: No Integumentary: No Blood Disorders: No Adverse Reaction/Blood Tranf: No Physical Exam Vital Signs Vital Signs - First Documented 07/07/23 16:45 Pulse 68 Resp 18 B/P (MAP) 130/80 (97) Pulse Ox 95 Capillary Refill : Less Than 3 Seconds Height, Weight, BMI Height: 5'10.00" Weight: 170lbs. oz. 77.265348hd; 23.93 BMI Method:Stated General Appearance: WD/WN, no apparent distress HEENT: normal ENT inspection, pharynx normal Neck: non-tender, supple Cardiovascular: regular rate, rhythm, no murmur Respiratory: chest non-tender, lungs clear, normal breath sounds Skin: other (5 cm laceration left superior scalp galea is intact) Procedures/Interventions Other Wound Location scalp Wound Length (cm): 5 Wound's Depth, Shape: sub Q Wound Explored: clean Irrigated w/ Saline (ccs): 500 Betadine Prep?: Yes Anesthesia: 1% Lidocaine Volume Anesthetic (ccs): 5 Staple Repair: Stapler 35W Number of Sutures: 10 Layer Closure?: 1 Number Deep Layer Sutures: 0 Sterile Dressing Applied?: Yes Progress/Results/Core Measures Results/Orders My Orders Orders - AZEEM POLLOCK DO Ct Head Wo (07/07/23 16:50) Dipht/Pertuss(Acell)/Tet Adult (Dipht/Pe (07/07/23 17:00) Lidocaine 1% Inj 10 Ml (Xylocaine 1% Inj (07/07/23 17:03) Medications Given in ED Current Medications Medications Dose Ordered Sig/Esther Route Start Time Stop Time Status Last Admin Dose Admin Diphtheria/ Tetanus/Acell Pertussis 0.5 ml ONCE ONCE IM 07/07/23 17:00 07/07/23 17:01 DC 07/07/23 17:00 0.5 ML Lidocaine HCl 10 ml STK-MED ONCE .ROUTE 07/07/23 17:03 07/07/23 17:05 DC 07/07/23 17:11 2 ML Vital Signs/I&O 07/07/23 16:45 Pulse 68 Resp 18 B/P (MAP) 130/80 (97) Pulse Ox 95 Blood Pressure Mean: 97 Departure Communication (Admissions) Patient is hemodynamically stable. CT scan is negative. I have independently reviewed the images. Lacerations repaired with juanita. He is discharged in stable condition Impression Primary Impression: Scalp laceration Qualified Codes: S01.01XA - Laceration without foreign body of scalp, initial encounter Additional Impression: Closed head injury Qualified Codes: S09.90XA - Unspecified injury of head, initial encounter Disposition: HOME, SELF-CARE Condition: Stable Departure-Patient Inst. Referrals: DORIAN SAMANO MD (PCP/Family) Primary Care Physician Patient Instructions: Laceration Repair With Juanita ED Add. Discharge Instructions: Have the juanita removed in about 10 days. You may have this done in the emergency department. You may shower like normal but do not submerge the area in water. Return to the emergency department for any severe concerns. Follow- up with your primary doctor for any nonemergent needs All discharge instructions reviewed with patient and/or family. Voiced understanding. AZEEM POLLOCK DO Jul 07, 2023 16:54
[2023-07-07] MEDS ORDERED: Tetanus/Diphtheria/Pertussis (Acell) ADULT Vaccine 0.5 ML IM ONE (17:00)
[2023-07-07] MEDS ORDERED: LIDOCAINE 1% INJ 10 ML VIAL ONE (17:03)
--- NOTE | 2023-07-07 17:15 | Diagnostic Imaging Report ---
INDICATION: Fall, with injury to head and laceration to head. TECHNIQUE: Multiple contiguous axial images were obtained through the brain without the use of intravenous contrast. Auto Exposure Controls were utilized during the CT exam to meet ALARA standards for radiation dose reduction. Comparison made to 09/20/2016. FINDINGS: There were no extra-axial fluid collections. No intracranial hemorrhage. No intracranial mass or mass effect. No midline shift. Ventricles are normal in size and position. There are mild chronic changes in the deep white matter compatible with chronic ischemia. There is no acute intracranial abnormality. There are vascular calcifications noted. There is some mucosal thickening in the left maxillary sinus. Calvarial windows are normal. IMPRESSION: No acute intracranial abnormality with underlying chronic changes as above. Dictated by: Dictated on workstation # [id number]
[2023-07-07 17:23] VITALS: BP 130/80
== END 2023-07-07 17:23 | disposition home or self-care (01) ==
LOC: EDUNIT# 16:37 → ER 16:39
DX: S09.90XA Unspecified injury of head, initial encounter (principal); S01.01XA Laceration without foreign body of scalp, initial encounter; Z23 Encounter for immunization; W01.198A Fall on same level from slipping, tripping and stumbling with subsequent striking against other object, initial encounter; Y92.59 Other trade areas as the place of occurrence of the external cause
CPT/HCPCS: 12032; 70450; 90471; 90715

== ENCOUNTER 2023-07-17 06:53 | Emergency (ER) | payer MEDICARE, OTHER ==
--- NOTE | 2023-07-17 07:13 | ED Suture Removal/Wound Check ---
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 Patient Instructions: STAPLE REMOVAL - UNCOMPLICATED RYAN STAHL DO Jul 17, 2023 07:13
[2023-07-17 07:14] VITALS: BP 128/80
== END 2023-07-17 07:11 | disposition home or self-care (01) ==
LOC: EDUNIT# 06:53 → ER 06:56
DX: Z48.02 Encounter for removal of sutures (principal)